=== PATIENT | male | born 1950 | race Caucasian/White ===

== ENCOUNTER 2017-02-05 10:19 | Emergency (ER) | payer MEDICARE, OTHER ==
[~2017-02-05] VITALS: Ht 167.6 cm; Wt 82.0 kg
[2017-02-05] MEDS ORDERED: HYDROCODONE/ACETAMINOPHEN 5/325MG TABLET PO ONE (14:30)
[2017-02-05] MEDS ORDERED: ONDANSETRON 4MG ODT PO ONE (14:30)
[2017-02-05 16:57] VITALS: BP 132/78
== END 2017-02-05 17:02 | disposition home or self-care (01) ==
LOC: ER 10:19
DX: M54.5 Low back pain (principal); G89.29 Other chronic pain; I10 Essential (primary) hypertension; M47.897 Other spondylosis, lumbosacral region
CPT/HCPCS: 72131; 99284; Q0162

== ENCOUNTER 2022-06-11 00:36 | Emergency (ER) | payer MEDICARE, OTHER ==
[~2022-06-11] VITALS: Ht 165.1 cm; Wt 85.2 kg
[2022-06-11 02:05] LABS: CLARITY URINE CLEAR (CLEAR); COLOR URINE YELLOW (YELLOW); KETONES URINE NEGATIVE (NEGATIVE); LEUKOCYTE ESTERASE URINE 2+ (NEGATIVE); NITRITE URINE NEGATIVE (NEGATIVE); OCCULT BLOOD URINE 1+ (NEGATIVE); PROTEIN URINE TRACE (NEGATIVE); SPECIFIC GRAVITY URINE 1.014 (1.005-1.030); UROBILINOGEN URINE 0.2 E.U./dL (0.2-1.0)
[2022-06-11] MEDS ORDERED: PHEN-910 MT (02:48)
[2022-06-11 03:15] VITALS: BP 129/74
== END 2022-06-11 03:45 | disposition home or self-care (01) ==
LOC: ER 00:36
DX: N34.2 Other urethritis (principal); N40.0 Benign prostatic hyperplasia without lower urinary tract symptoms; I10 Essential (primary) hypertension
CPT/HCPCS: 81003; 99283

== ENCOUNTER 2022-06-11 16:37 | Emergency (ER) | payer MEDICARE, OTHER ==
[~2022-06-11] VITALS: Ht 165.1 cm; Wt 78.0 kg
[~2022-06-11 16:37] MED LIST: PHEN-910 MT
[2022-06-11 16:45] VITALS: BP 197/112
== END 2022-06-11 19:12 | disposition home or self-care (01) ==
LOC: ER 16:37
DX: N40.1 Benign prostatic hyperplasia with lower urinary tract symptoms (principal); R33.8 Other retention of urine; I10 Essential (primary) hypertension
CPT/HCPCS: 99281

== ENCOUNTER 2022-06-12 15:51 | Emergency (ER) | payer MEDICARE, MEDICAID ==
[~2022-06-12] VITALS: Ht 165.1 cm; Wt 81.0 kg
[2022-06-12 22:00] VITALS: BP 125/75
== END 2022-06-13 00:16 | disposition home or self-care (01) ==
LOC: ER 15:51
DX: N40.1 Benign prostatic hyperplasia with lower urinary tract symptoms (principal); R33.8 Other retention of urine; I10 Essential (primary) hypertension; R73.03 Prediabetes
CPT/HCPCS: 99281

== ENCOUNTER 2022-06-13 10:09 | Emergency (ER) | payer OTHER, MEDICAID ==
[~2022-06-13] VITALS: Ht 165.1 cm; Wt 80.0 kg
[2022-06-13 10:12] VITALS: BP 131/84
== END 2022-06-13 13:45 | disposition home or self-care (01) ==
LOC: ER 10:09
DX: Z46.6 Encounter for fitting and adjustment of urinary device (principal); N40.1 Benign prostatic hyperplasia with lower urinary tract symptoms; R33.8 Other retention of urine; I10 Essential (primary) hypertension; R73.03 Prediabetes
CPT/HCPCS: 99281

== ENCOUNTER 2022-06-22 15:34 | Emergency (ER) | payer OTHER, MEDICAID ==
[~2022-06-22] VITALS: Ht 165.1 cm; Wt 82.0 kg
[2022-06-22 15:57] VITALS: BP 173/97
[2022-06-22 18:15] LABS: CLARITY URINE CLEAR (CLEAR); COLOR URINE YELLOW (YELLOW); KETONES URINE NEGATIVE (NEGATIVE); LEUKOCYTE ESTERASE URINE NEGATIVE (NEGATIVE); NITRITE URINE NEGATIVE (NEGATIVE); OCCULT BLOOD URINE NEGATIVE (NEGATIVE); PH URINE 5.5 (4.5-8.0); PROTEIN URINE NEGATIVE (NEGATIVE); SPECIFIC GRAVITY URINE 1.008 (1.005-1.030); UROBILINOGEN URINE 0.2 E.U./dL (0.2-1.0)
== END 2022-06-22 19:28 | disposition home or self-care (01) ==
LOC: ER 15:34
DX: N40.1 Benign prostatic hyperplasia with lower urinary tract symptoms (principal); R33.8 Other retention of urine; I10 Essential (primary) hypertension
CPT/HCPCS: 51702; 81003; 99284